=== PATIENT | female | born 1950 | race Caucasian/White ===

== ENCOUNTER 2019-02-01 11:48 | Observation (INO) ==
[2019-02-01] MEDS ORDERED: SODIUM CHLORIDE 0.9% 1,000 ML IV STA (12:18)
[2019-02-01] MEDS ORDERED: LEVOFLOXACIN INJ 750 MG in PREMIX 1 EACH IV STA (13:01)
[2019-02-01] MEDS ORDERED: ACETAMINOPHEN 325 MG TABLET PO PRN (13:09)
[2019-02-01] MEDS ORDERED: ONDANSETRON 4 MG/2 ML VIAL IV PRN (13:09)
[2019-02-01] MEDS ORDERED: LEVOFLOXACIN INJ 150 ML IV ONE (13:13)
[2019-02-01 13:19] LABS: Albumin 3.3 G/DL (3.4-5.0); Bilirubin,Total 0.6 MG/DL (0.2-1.0); Calcium 8.5 MG/DL (8.5-10.1); Osmolality,Calculated 280.3 MOS/KG (273-304); Total Protein 6.8 G/DL (6.4-8.3)
[2019-02-01] MEDS: ENOXAPARIN 40 MG/0.4 ML SYRINGE SUBCUT SCH (15:41)
[2019-02-01] MEDS: DEXTROSE 5% NACL 0.9% 1,000 ML IV SCH (15:50)
[2019-02-01] MEDS ORDERED: POTASSIUM CHLORIDE INJ 50 MEQ in SODIUM CHLORIDE 0.9% 500 ML IV ONE (16:30)
[2019-02-01] MEDS: ROSUVASTATIN 10 MG TABLET PO SCH (20:14)
[2019-02-02 01:35] LABS: Basophils % 0.5 % (0.0-0.8); Eosinophils # 0.1 10*3/uL (0.0-0.87); Eosinophils % 1.9 % (0.00-10.9); Hematocrit 36.6 VOL% (35.7-47.0); Hemoglobin 11.4 GM/DL (12.0-16.0); Immature Granulocytes % 0.5 %; Immature Granulocytes Absolute 0.03 #; Lymphocytes # 1.3 10*3/uL (1.4-4.0); Lymphocytes % 21.4 % (21.3-54.2); Mean Corpuscular HGB Conc 31.1 GM/DL (32-36); Mean Corpuscular Volume 92.4 FL (87-102); Mean Platelet Volume 9.8 FL (9.6-12.0); Monocytes % 12.6 % (1.7-12.7); Neutrophils % 63.1 % (38.7-73.9); Platelet Count 227 T/CUMM (130-400); Red Blood Count 3.96 MC/CUMM (3.8-5.5); Red Cell Distribution Width 13.2 % (9.3-17.3); White Blood Count 6.2 T/CUMM (4-12)
[2019-02-02 02:01] LABS: Calcium 7.7 MG/DL (8.5-10.1); Osmolality,Calculated 285.7 MOS/KG (273-304)
[2019-02-02] MEDS: POTASSIUM CHLORIDE RIDER 10 MEQ in PREMIX 1 EACH IV PRN ×4 (04:15→14:39)
[2019-02-02] MEDS: DEXTROSE 5% NACL 0.9% 1,000 ML IV SCH ×2 (06:19→14:47)
[2019-02-02] MEDS: LEVOTHYROXINE 25 MCG TABLET PO SCH (06:19)
[2019-02-02] MEDS: PANTOPRAZOLE 40 MG TABLET PO SCH (08:46)
[2019-02-02] MEDS: LEVOFLOXACIN INJ 500 MG in PREMIX 1 EACH IV SCH (11:01)
[2019-02-02] MEDS: ENOXAPARIN 40 MG/0.4 ML SYRINGE SUBCUT SCH (14:42)
[2019-02-02] MEDS: ROSUVASTATIN 10 MG TABLET PO SCH (20:33)
[2019-02-03] MEDS: DEXTROSE 5% NACL 0.9% 1,000 ML IV SCH ×2 (01:36)
[2019-02-03] MEDS: LEVOTHYROXINE 25 MCG TABLET PO SCH (06:14)
[2019-02-03 07:52] VITALS: BP 125/69
[2019-02-03] MEDS: PANTOPRAZOLE 40 MG TABLET PO SCH (09:06)
[2019-02-03] MEDS: LEVOFLOXACIN INJ 500 MG in PREMIX 1 EACH IV SCH (09:06)
== END 2019-02-03 10:40 | disposition home or self-care (01) ==
LOC: EDUNIT# → EDBD → N.ED 11:48 → N.EDINP 11:48 → N.2E 14:31
PROVIDERS: ADMIT Family Medicine; ATTEND Family Medicine